=== PATIENT | male | born 1995 | race Caucasian/White ===

== ENCOUNTER 2017-09-29 11:43 | Emergency (ER) | payer BC, OTHER ==
[~2017-09-29] VITALS: Ht 185.4 cm; Wt 81.6 kg
--- NOTE | 2017-09-29 11:55 | ED Upper Extremity ---
General Stated Complaint: LT PINKY LAC Source: patient Exam Limitations: no limitations History of Present Illness Date Seen by Provider: Sep 29, 2017 Time Seen by Provider: 11:52 Initial Comments to ER with a laceration to the ulnar side middle phalanx left pinky finger after getting it caught in a chain at work. He does not wish to file a workman' s comp. Tetanus is up-to-date. Onset: just prior to arrival Severity: moderate Pain/Injury Location: left 5th finger Modifying Factors: Worse With Movement Allergies and Home Medications Allergies Coded Allergies: No Known Drug Allergies (Unverified , 09/29/17) Home Medications No Active Prescriptions or Reported Meds Patient Home Medication List Home Medication List Reviewed: Yes Constitutional: see HPI EENTM: see HPI Respiratory: no symptoms reported Cardiovascular: no symptoms reported Genitourinary: no symptoms reported Musculoskeletal: no symptoms reported Skin: see HPI Psychiatric/Neurological: No Symptoms Reported Past Tldussp-Xbwdag-Wspeaf Hx Patient Social History Recent Foreign Travel: No Contact w/Someone Who Travel: No Physical Exam Vital Signs Vital Signs - First Documented 09/29/17 11:45 Temp 97.4 Pulse 88 Resp 18 B/P (MAP) 141/87 (105) Pulse Ox 100 Capillary Refill : General Appearance: WD/WN, no apparent distress HEENT: PERRL/EOMI, normal ENT inspection Neck: non-tender, full range of motion Respiratory: no respiratory distress, no accessory muscle use Gastrointestinal: normal bowel sounds, non tender Shoulder: normal inspection, non-tender Elbow/Forearm: normal inspection, non-tender Hand: Left, laceration (superficial skin avulsion to the middle phalanx ulnar side left fifth finger with some swelling to the middle phalanx as well.) Neurologic/Psychiatric: alert, normal mood/affect, oriented x 3 Skin: normal color, warm/dry Progress/Results/Core Measures Results/Orders My Orders Orders - JACQUES BRADY APRN Finger(S) (09/29/17 11:51) Vital Signs/I&O 09/29/17 11:45 Temp 97.4 Pulse 88 Resp 18 B/P (MAP) 141/87 (105) Pulse Ox 100 Departure Impression Primary Impression: Skin avulsion Disposition: 01 HOME, SELF-CARE Condition: Stable Departure-Patient Inst. Decision time for Depature: 12:26 Referrals: NO,LOCAL PHYSICIAN (PCP/Family) Primary Care Physician Patient Instructions: SKIN AVULSION Add. Discharge Instructions: 1. Return to ER for any concerns 2. Tylenol and Motrin for any pain.All discharge instructions reviewed with patient and/or family. Voiced understanding. Scripts No Active Prescriptions or Reported Meds JACQUES BRADY APRN Sep 29, 2017 11:55
--- NOTE | 2017-09-29 12:14 | Diagnostic Imaging Report ---
INDICATION: Lifting injury as well as laceration to the left fifth finger. TIME OF EXAM: 12:22 PM 3 views of the left fifth finger were obtained. FINDINGS: The alignment of the fifth finger is normal. The phalanges appear intact. No fractures are seen. The soft tissues are unremarkable. No radiopaque soft tissue foreign body is seen. IMPRESSION: No acute abnormality is detected. Dictated by: Dictated on workstation # [id number]
[2017-09-29 12:34] VITALS: BP 141/87
== END 2017-09-29 12:34 | disposition home or self-care (01) ==
LOC: ER 11:46
DX: S61.217A Laceration without foreign body of left little finger without damage to nail, initial encounter (principal); S61.213A Laceration without foreign body of left middle finger without damage to nail, initial encounter; W23.1XXA Caught, crushed, jammed, or pinched between stationary objects, initial encounter
CPT/HCPCS: 73140

== ENCOUNTER 2021-09-03 13:29 | Emergency (ER) | payer SELFPAY ==
[~2021-09-03] VITALS: Ht 183 cm; Wt 81.6 kg
[2021-09-03 13:35] VITALS: BP 129/69
--- NOTE | 2021-09-03 13:43 | ED EENT ---
History of Present Illness General Chief Complaint: Eye Problems Stated Complaint: POSSIBLE METAL IN RIGHT EYE Source: patient Exam Limitations: no limitations History of Present Illness Date Seen by Provider: September 03, 2021 Time Seen by Provider: 13:40 Initial Comments Was using a sawsall on friday09/01/21 when a piece of metal flicked into his right eye. His vision is unchanged, he denies any foreign body sensation. Tetanus is not up to date. He does notice a small reddened area to the medial right eye. Timing/Duration: abrupt Severity: mild Location: eye (R) Prearrival Treatment: no prearrival treatment Associated Symptoms: denies symptoms Allergies and Home Medications Allergies Coded Allergies: No Known Drug Allergies (Unverified , 09/29/17) Patient Home Medication List Home Medication List Reviewed: Yes Ketorolac Tromethamine (Acular) 0.5 % Drops, 1 DROP OP TID Prescribed by: JACQUES BRADY on 09/03/21 1348 Review of Systems Review of Systems Constitutional: see HPI Eyes: See HPI Ears: No Symptoms Reported Nose: no symptoms reported Mouth: no symptoms reported Throat: no symptoms reported Respiratory: no symptoms reported Cardiovascular: no symptoms reported Musculoskeletal: no symptoms reported Skin: no symptoms reported Neurological: No Symptoms Reported Hematologic/Lymphatic: No Symptoms Reported Immunological/Allergic: no symptoms reported Past Kxeslow-Mvpbpr-Tmbelu Hx Seasonal Allergies Seasonal Allergies: No Past Medical History Surgeries: No Respiratory: No Cardiac: No Neurological: No Genitourinary: No Gastrointestinal: No Musculoskeletal: No Endocrine: No HEENT: No Cancer: No Psychosocial: No Integumentary: No Blood Disorders: No Physical Exam Vital Signs Vital Signs - First Documented 09/03/21 13:35 Temp 36.2 Pulse 82 Resp 18 B/P (MAP) 129/69 (89) Pulse Ox 98 O2 Delivery Room Air Height, Weight, BMI Height: 6'1.00" Weight: 180lbs. oz. 81.074372ec; BMI Method:Stated General Appearance: WD/WN, no apparent distress Eyes: right eye other (There is a small area of conjunctival inflammation on the bulbar conjunctive a at about the 3 to 4 o'clock position of the right eye, appearance similar to a pterygium though it does not extendon to the cornea); bilateral eye PERRL, bilateral eye EOMI Ears: bilateral ear auricle normal, bilateral ear canal normal, bilateral ear TM normal Neck: non-tender, full range of motion Respiratory: no respiratory distress, no accessory muscle use Gastrointestinal: normal bowel sounds, non tender Neurologic/Psychiatric: alert, normal mood/affect, oriented x 3 Skin: normal color, warm/dry Progress/Results/Core Measures Results/Orders My Orders Orders - JACQUES BRADY APRN Tetracaine 0.5% Ophth Cora Sdv (Tetracai (09/03/21 13:45) Fluorescein Strips (Gihmg-K-Suhvoo) (09/03/21 13:45) Balanced Salt Irrigation Soln (Bss Irrig (09/03/21 13:45) Vital Signs/I&O 09/03/21 13:35 Temp 36.2 Pulse 82 Resp 18 B/P (MAP) 129/69 (89) Pulse Ox 98 O2 Delivery Room Air Departure Impression Primary Impression: Pingueculitis of right eye Disposition: HOME, SELF-CARE Condition: Stable Departure-Patient Inst. Decision time for Depature: 13:46 Referrals: TARA BROWN OD, SHANE R OD NO,LOCAL PHYSICIAN (PCP) Primary Care Physician Patient Instructions: NO INSTRUCTIONS GIVEN Add. Discharge Instructions: . Apply the topical anti-inflammatory drops as directed. Return to ER for any concerns. Call the eye doctor of your choosing [facility] to be seen for follow-up. All discharge instructions reviewed with patient and/or family. Voiced understanding. Scripts Ketorolac Tromethamine (Acular) 0.5 % Drops 1 DROP OP TID, #1 EA Prov: AJCQUES BRADY APRN 09/03/21 JACQUES BRADY APRN September 03, 2021 13:43
[2021-09-03] MEDS ORDERED: FLUORESCEIN (FLUOR-I-STRIPS) 1 MG STRP OU ONE (13:45)
[2021-09-03] MEDS ORDERED: TETRACAINE 0.5% OPHTH SOLN 4 ML BTL (SINGLE DOSE ONLY) OU ONE (13:45)
[2021-09-03] MEDS ORDERED: BSS 15 ML IR ONE (13:45)
[2021-09-03] MEDS ORDERED: KETO5DRO OP (13:48)
[2021-09-03] MEDS ORDERED: TETANUS,DIPTH,PERTUSS P/F (BOOSTRIX) 0.5 ML VIAL IM ONE (14:15)
== END 2021-09-03 14:15 | disposition home or self-care (01) ==
LOC: EDUNIT# 13:29 → ER 13:31
DX: H10.811 Pingueculitis, right eye (principal)
CPT/HCPCS: 90715; 99284

== ENCOUNTER 2022-06-26 20:38 | Emergency (ER) | payer SELFPAY ==
[~2022-06-26] VITALS: Ht 185.5 cm; Wt 90.7 kg
[~2022-06-26 20:38] MED LIST: KETO5DRO OP
--- NOTE | 2022-06-26 20:50 | ED General ---
General Stated Complaint: PAIN R SIDE LUNG AREA Source of Information: Patient Exam Limitations: No Limitations History of Present Illness Date Seen by Provider: Jun 26, 2022 Time Seen by Provider: 20:42 Initial Comments 27-year-old male presents to the emergency department today for right lateral chest wall pain. Symptoms started 4 days ago and have been persistent. He states it feels like it is difficult to take a deep breath as well. Pain is described as sharp, stabbing and worse with deep inspiration. Points to his right lower lung field as the location of the pain but it is also worked its way up in the last couple of days. No fevers or chills. He has had a mild nonproductive cough. He has never had similar symptoms in the past. No unilateral lower extremity pain, swelling, recent surgeries, long distance travel. No self or family history of DVT, PE. He does smoke cigarettes All other systems reviewed and negative except documented per HPI. Voice recognition software was used to help create this chart Allergies and Home Medications Allergies Coded Allergies: No Known Drug Allergies (Unverified , 09/29/17) Patient Home Medication List Home Medication List Reviewed: Yes Ketorolac Tromethamine (Acular) 0.5 % Drops, 1 DROP OP TID Prescribed by: JACQUES BRADY on 09/03/21 3378 Review of Systems Review of Systems Constitutional: no symptoms reported Past Vpajkwx-Wqdpey-Wmopoz Hx Patient Social History Tobacco Use?: Yes Tobacco type used: Cigarettes Use of E-Cig and/or Vaping dev: No Substance use?: No Alcohol Use?: No Immunizations Up To Date First/Initial COVID19 Vaccinat: n/a Seasonal Allergies Seasonal Allergies: No Past Medical History Surgery/Hospitalization HX: testicular cancer Surgeries: No Respiratory: No Cardiac: No Neurological: No Genitourinary: No Gastrointestinal: No Musculoskeletal: No Endocrine: No HEENT: No Cancer: No Psychosocial: No Integumentary: No Blood Disorders: No Family Medical History Reviewed Nursing Family Hx No Pertinent Family Hx Physical Exam Vital Signs Vital Signs - First Documented 06/26/22 20:42 Temp 36.7 Pulse 87 Resp 22 B/P (MAP) 136/68 (90) Pulse Ox 99 O2 Delivery Room Air Capillary Refill : Height, Weight, BMI Height: 6'1.00" Weight: 180lbs. oz. 81.382017ad; 24.00 BMI Method:Stated General Appearance: No Apparent Distress, WD/WN HEENT: Normal ENT Inspection, Pharynx Normal Neck: Full Range of Motion, Normal Inspection, Non Tender, Supple Respiratory: Chest Non Tender, Lungs Clear, Normal Breath Sounds, No Accessory Muscle Use, No Respiratory Distress Cardiovascular: Regular Rate, Rhythm, No Edema, No Murmur, Normal Peripheral Pulses Gastrointestinal: Normal Bowel Sounds, No Organomegaly, No Pulsatile Mass, Non Tender, Soft Back: Normal Inspection, No CVA Tenderness, No Vertebral Tenderness Extremity: Normal Capillary Refill, Normal Inspection, Normal Range of Motion, Non Tender, No Calf Tenderness, No Pedal Edema Neurologic/Psychiatric: Alert, Oriented x3, Normal Mood/Affect Skin: Normal Color, Warm/Dry Progress/Results/Core Measures Suspected Sepsis SIRS Temperature: Pulse: Respiratory Rate: Blood Pressure / Mean: Results/Orders My Orders Orders - ALLIGODWIN DO Chest Pa/Lat (2 View) (06/26/22 20:47) Ketorolac Injection (Toradol Injection) (06/26/22 21:30) Vital Signs/I&O 06/26/22 06/26/22 20:42 20:42 Temp 36.7 Pulse 87 Resp 22 B/P (MAP) 136/68 (90) Pulse Ox 99 O2 Delivery Room Air Room Air Capillary Refill : Departure Communication (Admissions) Patient is hemodynamically stable. Differential diagnosis includes pneumothorax, pneumonia, bronchitis, pleuritic chest pain, PE. He has no risk factors for PE, negative PERC criteria. I have independently reviewed and reviewed chest x-ray and it is completely clear with no evidence for pneumonia, pneumothorax. He is coughing at the bedside I think he likely has pleurisy with bronchitis symptoms present for only 4 days, no indication for antibiotics at this time. He is given a shot of Toradol IM and discharged with prescription for p.o. Toradol. I did advise him if the symptoms continue he should be evaluated further. He states understanding. He is discharged in stable condition. Impression Primary Impression: Pleuritic chest pain Disposition: 01 HOME, SELF-CARE Condition: Stable Departure-Patient Inst. Referrals: NO,LOCAL PHYSICIAN (PCP/Family) Primary Care Physician Patient Instructions: Pleuritic Chest Pain Add. Discharge Instructions: I think you have pleurisy related to bronchitis. Please use the anti- inflammatory medicine, Toradol, as needed. Do not take other anti-inflammatory medicines while you are taking this. Bronchitis is a viral illness. There is no evidence for bacterial source at this time however her symptoms last more than 10 to 14 days antibiotics may be indicated. Return to the emergency department for any severe concerns or follow-up with your primary doctor for any nonemergent needs. Scripts Ketorolac Tromethamine (Ketorolac Tromethamine) 10 Mg Tablet 10 MG PO TID for Pain for 3 Days, #9 TAB Prov: GODWIN CARSON DO 06/26/22 GODWIN CARSON DO Jun 26, 2022 20:50
[2022-06-26] MEDS ORDERED: KETO10TA PO ×2 (21:24→21:34)
--- NOTE | 2022-06-26 21:24 | Diagnostic Imaging Report ---
INDICATION: Chest pain, shortness of breath FINDINGS: The lungs are clear. No failure, effusion or pneumothorax. IMPRESSION: No acute appearing abnormality Dictated by: Dictated on workstation # [id number]
[2022-06-26] MEDS ORDERED: KETOROLAC 15 MG/ML VIAL IM ONE (21:30)
[2022-06-26 21:34] VITALS: BP 122/74
== END 2022-06-26 21:34 | disposition home or self-care (01) ==
LOC: EDUNIT# 20:38 → ER FS 20:40
DX: R07.81 Pleurodynia (principal); F17.210 Nicotine dependence, cigarettes, uncomplicated
CPT/HCPCS: 71046